=== PATIENT | male | born 1995 | race Caucasian/White ===

== ENCOUNTER 2017-10-23 13:20 | Day surgery (SDC) | payer OTHER ==
[~2017-10-23] VITALS: Ht 185.4 cm; Wt 64.4 kg
--- NOTE | ~2017-10-23 | OP ---
PATIENT NAME: VIRGEN JOHNSON MEDICAL RECORD: [id number] :89 LOCATION:[facility] ADMISSION DATE: SURGEON: ELIAN GEE MD DATE OF OPERATION: 10/23/2017 DATE OF OPERATION: 10/23/2017 PREOPERATIVE DIAGNOSIS: Right inguinal hernia. POSTOPERATIVE DIAGNOSIS: Right inguinal hernia. PROCEDURE: Right inguinal hernia repair. SURGEON: Elian Gee MD REPORT OF PROCEDURE: The patient's right groin was prepped and draped in sterile fashion. An oblique incision was made above the inguinal ligament. Electrocautery was used to dissect through the subcutaneous tissues down to the external oblique fascia. This fascia was opened up to the external ring using electrocautery. The ilioinguinal nerve was found and high ligated. We dissected out the indirect hernia sac from the spermatic cord. The indirect hernia sac was dunked back down into the peritoneal cavity and opening was made in the inguinal floor. The preperitoneal space of Retzius was opened up in all directions and a medium PHS mesh was inserted. This was sutured down on all 4 sides using interrupted 0 Vicryls. The wound was then irrigated out with normal saline and care was taken to make sure there was no sign of any bleeding. The external oblique fascia was closed with running 2-0 Vicryl, Isac's was closed with interrupted 3-0 Vicryls and the skin was closed with running subcutaneous 5-0 Monocryl. COMPLICATIONS: None. CONDITION: Stable. ANESTHESIA: General endotracheal and local. BLOOD LOSS: Minimal. TRANSINT:[id number] Voice Confirmation ID: [id number] DOCUMENT ID: [id number] ELIAN GEE MD at 0801 CC: WALLY MELLO DO [id number] DICTATION DATE: 10/23/17 1734 EXERCISE MANAGER: 10/23/17 1812 [facility] 10/23/17 [place] [id number] [place] [id number]
[2017-10-23 15:16] VITALS: BP 105/67; Ht 185.4 cm; Wt 64.4 kg
[2017-10-23 15:28] LABS: BASOPHILS 0.3 % (0-2); HEMATOCRIT 45.3 % (42.0-54.0); IMMATURE GRANULOCYTES 0.1 % (0-5); LYMPHOCYTES 33.6 % (15-50); MCH 31.1 pg (26.0-34.0); MCHC 35.3 g/dL (31.0-37.0); MCV 88.1 fL (80.0-100.0); MEAN PLATELET VOLUME 9.3 fL (7.4-10.4); MONOCYTES 6.4 % (2-11); NEUTROPHILS 58.6 % (40-80); PLATELET COUNT 220 10x3/uL (130-400); RBC 5.14 10x6/uL (4.20-6.10); RDW 12.5 % (11.5-14.5); WBC 6.8 10x3/uL (4.8-10.8)
[2017-10-23 15:41] LABS: CALC OSMOLALITY 275 mosm/kg (275-300); CALCIUM 9.2 mg/dL (8.5-10.1); CARBON DIOXIDE 29.6 mmol/L (21.0-32.0); CHLORIDE - SERUM 102 mmol/L (98-107); CREATININE - SERUM 1.1 mg/dL (0.6-1.3); GLUCOSE 91 mg/dL (74-106); SODIUM 138 mmol/L (136-145); UREA NITROGEN 12 mg/dL (7-18); eGFR NON AFRICAN AMERICAN 90 mL/min (90-120)
[2017-10-23] MEDS ORDERED: HYDROCODONE-APA1 TAB PO (17:29)
== END 2017-10-23 19:45 | disposition home or self-care (01) ==
LOC: D.PAN 13:20 → D.OPS 10-24 08:15 → D.PAN 10-24 08:15
PROVIDERS: Surgery
DX: K40.90 Unilateral inguinal hernia, without obstruction or gangrene, not specified as recurrent (principal); Z01.812 Encounter for preprocedural laboratory examination